=== PATIENT | female | born 2000 | race African-American/Black ===

== ENCOUNTER 2020-07-04 22:49 | Emergency (ER) | payer OTHER ==
[2020-07-04] MEDS ORDERED: DIPHENHYDRAMINE HCL 50 MG/ML VIAL IV ONE (22:58)
[2020-07-04] MEDS ORDERED: FAMOTIDINE INJ/PF 20 MG/2 ML SDV IV ONE (22:58)
[2020-07-04] MEDS ORDERED: METHYLPREDNISOLONE INJ 125 MG/2 ML SDV IV ONE (22:59)
[2020-07-04] MEDS ORDERED: EPINEPHRINE INJ/PF 1 MG/1 ML AMPULE IM ONE (22:59)
--- NOTE | 2020-07-04 23:01 | ER Document Report ---
ED Medical Screen (RME) - General Chief Complaint: Breathing Difficulty Stated Complaint: DIFFICULTY BREATHING, POSSIBLE ALLERGIC REACTION Time Seen by Provider: 07/04/20 22:56 Mode of Arrival: Wheelchair Information source: Patient Notes: 20-year-old female patient presenting to the emergency department with complaints of difficulty breathing and possible allergic reaction. Patient is not sure what she is allergic to, she states the reaction started about an hour ago. She does have hives to her upper extremities and a small amount of hives on her face. She states that she has a sore throat and feels slightly difficult to swallow. She denies any history of having anaphylaxis in the past. Patient is speaking in full and complete sentences, appears to be swallowing without difficulty. I do not appreciate any tongue swelling or lip swelling. Medications ordered, charge nurse made aware of need for immediate bed placement. I have greeted and performed a rapid initial assessment of this patient. A comprehensive ED assessment and evaluation of the patient, analysis of test results and completion of the medical decision making process will be conducted by additional ED providers. I have specifically instructed the patient or family members with the patient to immediately return to any nursing staff should anything change in the patient's condition or with their chief complaint.
--- NOTE | 2020-07-05 00:19 | ER Document Report ---
ED General - General Chief Complaint: Allergic Reaction Stated Complaint: DIFFICULTY BREATHING, POSSIBLE ALLERGIC REACTION Time Seen by Provider: 07/04/20 22:56 Mode of Arrival: Wheelchair - HPI Context: This is a 20-year-old female with no reported prior medical history who presents complaining of shortness of breath, rash and pruritus over the past 2 hours. Patient states she had a similar occurrence of symptoms yesterday that was sudden and prompted her to be seen at another emergency department. Patient states that she was given Solu-Medrol, Zyrtec, Pepcid and Benadryl and a shot of epinephrine with resolution of symptoms. Patient was discharged home with a prescription for an EpiPen, a Zyrtec tablet, a Pepcid tablet, and a prednisone tablet. Patient states that she was feeling fine and thought she had completely recovered from her allergic reaction yesterday until she had a return of symptoms 2 hours prior to arrival. Patient is uncertain of what precipitated this event or its recurrence. Patient states that alleviating symptoms include the medications she received yesterday and again today and symptoms seem to be worsened with exertion. Patient denies headache, visual changes, loss of sense of taste or loss of sense of smell, cough, chest pain, exposure to new perfumes or chemicals at home or at work. Associated symptoms: Other - See HPI Exacerbated by: Other - See HPI Relieved by: Other - See HPI - Related Data Allergies/Adverse Reactions: No Known Allergies Allergy (Unverified 07/04/20 23:34) Past Medical History - General Information source: Patient - Social History Smoking Status: Unknown if Ever Smoked Family History: Reviewed & Not Pertinent Patient has suicidal ideation: No Patient has homicidal ideation: No Review of Systems - Review of Systems Constitutional: No symptoms reported EENT: Difficulty swallowing Cardiovascular: No symptoms reported Respiratory: Short of breath Gastrointestinal: No symptoms reported Genitourinary: No symptoms reported Female Genitourinary: No symptoms reported Musculoskeletal: No symptoms reported Skin: Rash Hematologic/Lymphatic: No symptoms reported Neurological/Psychological: No symptoms reported -: Yes All other systems reviewed and negative Physical Exam - Vital signs Vitals: Temp Pulse Resp BP Pulse Ox 97.6 F 91 24 H 131/94 H 99 07/04/20 23:00 07/04/20 23:00 07/04/20 23:00 07/04/20 23:00 07/04/20 23:00 - Notes Notes: CONSTITUTIONAL [Vital signs reviewed, Patient appears comfortable, Alert and oriented X 3, Normal stature.] HEAD [Atraumatic, Normocephalic.] EYES [Eyes are normal to inspection, No discharge from eyes, Extraocular muscles intact, Sclera are normal, Conjunctiva are normal.] ENT [Ears normal to inspection, Nose examination normal, Posterior pharynx normal, Mouth normal to inspection.] NECK [Normal ROM, No jugular venous distention, No meningeal signs, no carotid bruit.] RESPIRATORY CHEST [Chest is nontender, Breath sounds normal, No respiratory distress.] CARDIOVASCULAR [RRR, No murmurs, Normal S1 S2, No rub, No gallop.] ABDOMEN [Abdomen is nontender, No pulsatile masses, No other masses, Bowel sounds normal, No distension, No peritoneal signs, No hernias.] BACK [There is no CVA Tenderness, There is no tenderness to palpation, Normal inspection.] UPPER EXTREMITY [Inspection normal, No cyanosis, No clubbing, No edema, 2+ radial pulses.] LOWER EXTREMITY [Inspection normal, No cyanosis, No clubbing, No edema, No calf tenderness, 2+ femoral pulses.] NEURO [No focal motor deficits, No focal sensory deficits, Speech normal.] SKIN [Skin is warm, Skin is dry, Skin is normal color.] LYMPHATIC [No adenopathy in neck.] PSYCHIATRIC [Normal affect. ] Course - Re-evaluation Re-evalutation: 07/05/20 02:53 Patient states she is feeling better at this time. Patient denies shortness of breath, pruritus, rash. Diagnosis and plan of care discussed with patient. Emergency signs and symptoms, reasons to return to the emergency department discussed with patient. 07/05/20 02:53 Patient states she is already picked up the EpiPen that was prescribed for her by the provider she saw at [place] and has ready access to it. Patient was reminded to keep her EpiPen on her person at all times. - Vital Signs Vital signs: Temp Pulse Resp BP Pulse Ox 97.6 F 91 24 H 131/94 H 99 07/04/20 23:00 07/04/20 23:00 07/04/20 23:00 07/04/20 23:00 07/04/20 23:00 Discharge - Discharge Clinical Impression: Acute allergic reaction Condition: Stable Disposition: HOME, SELF-CARE Additional Instructions: Return to the Emergency Department without delay if any worse. HOME CARE INSTRUCTIONS & INFORMATION: Thank you for choosing us for your medical needs. We hope you're satisfied with the care you received. After you leave, you must properly care for your problem and, at the same time, observe its progress. Any condition can change. Some illnesses can change rapidly over hours or days. If your condition worsens, return to the Emergency Department or see your physician promptly. ABOUT YOUR X-RAYS AND EKG'S: If you had an EKG or X-rays taken, they have been read by the Emergency Physician. The X-rays and EKG's will also be read by a Radiologist or Embroidery Machine Operator within 24 hours. If discrepancies are noted, you will be notified by telephone. Please be certain the ED has a correct telephone number & address where you can be reached. Also, realize that some fractures or abnormalities do not show up on initial X-rays. If your symptoms continue, see your physician. ABOUT YOUR LABORATORY TEST: If you had laboratory tests, the results have been reviewed by the Emergency Physician. Some test results (for example cultures) may not be available for several days. You will be contacted if any test result shows you need additional treatment. Please be certain the ED has a correct telephone number and address where you can be reached. ABOUT YOUR MEDICATIONS: You will receive instructions on how to take your medicine on the prescription label you receive. Additional information may be provided by the Pharmacy. If you have questions afterwards, call the ED for clarification or further instructions. Some prescribed medications may cause drowsiness. Do not perform tasks such as driving a car or operating machinery without consulting your Pharmacist. If you feel you need a refill of pain medication, your condition will need re-evaluation. Please do not call for a refill of any medication. ABOUT YOUR SIGNATURE: Signature of this document acknowledges to followin. Understanding that you received emergency treatment and that you may be released before al medical problems are known or treated. Please be certain the ED has a correct phone number & address where you can be reached. 2. Acknowledgement that you will arrange for follow-up care as recommended. 3. Authorization for the Emergency Physician to provide information to your follow-up Physician in order to maximize your care. AT ANY TIME, IF YOUR SYMPTOMS CHANGE SIGNIFICANTLY OR WORSEN OR YOU DEVELOP NEW SYMPTOMS, RETURN TO THE EMERGENCY DEPARTMENT IMMEDIATELY FOR RE-EVALUATION. OUR GOAL IS TO PROVIDE EXCELLENT MEDICAL CARE! WE HOPE THAT WE HAVE MET YOUR EXPECTATIONS DURING YOUR EMERGENCY DEPARTMENT VISIT AND THAT YOU FEEL YOU HAVE RECEIVED EXCELLENT CARE! Acute Allergic Reaction Your symptoms are due to an allergic reaction. Allergy can cause hives, swelling of the hands, feet, and face, hoarseness, and difficulty swallowing or breathing. It may be due to exposure to medication, animal dander, foods, infection, or insect bites. Medication is a common cause, even when prior use of this same medication caused no problems. Acute treatment may include adrenalin and antihistamines. Usually, the specific allergic agent can't be identified unless repeated episodes occur. Home treatment includes the following: (1) Stop any suspicious medications. This will be discussed with you. (2) Oral antihistamines for the next four to five days. Example, diphenhydramine (Benadryl) every four hours. (3) You may also use cimetidine (Tagamet), or famotidine (Pepcid) every four hours if diphenhydramine is not controlling itching and hives. (4) Avoid aspirin until the hives completely disappear. (5) Avoid hot baths or showers until the hives are completely gone. Call the doctor if faintness, difficulty swallowing, tightness in the chest, or wheezing occurs. Prescriptions: Prednisone [Deltasone 20 mg Tablet] 3 tab PO DAILY 4 Days #12 tablet Referrals: CELSO GALVAN MD [[facility]] - Follow up as needed
[2020-07-05 03:57] VITALS: BP 121/72
== END 2020-07-05 03:56 | disposition home or self-care (01) ==
LOC: ER 22:49
DX: T78.40XA Allergy, unspecified, initial encounter (principal); R06.02 Shortness of breath; R21 Rash and other nonspecific skin eruption; L29.9 Pruritus, unspecified; X58.XXXA Exposure to other specified factors, initial encounter; Z79.899 Other long term (current) drug therapy
CPT/HCPCS: 99284; 96372; 96374; 96375; J1200; J0171; J2930; S0028